=== PATIENT | male | born 1955 | race Caucasian/White ===

== ENCOUNTER 2020-01-13 16:31 | Emergency (ER) | payer BC, SELFPAY ==
[2020-01-13 16:53] VITALS: BP 121/71; PULSE 72; RESP 16; TEMP 36.6; O2SAT 100
--- NOTE | 2020-01-13 17:23 | ED.GENADULT ---
HPI - General Adult General Chief complaint: Ear Stated complaint: Possible Ear infection Time Seen by Provider: 01/13/20 17:23 Source: patient and RN notes reviewed Mode of arrival: ambulatory Limitations: no limitations History of Present Illness HPI narrative: 64-year-old -[place] male presents with complaints of left otalgia, itching, blood drainage, and intermittent headache (not the worst of his life) for the past 9 days. Vitamin E and Peroxide without relief. Denies swimming. Dominic believes he got water into ear when he put his wet Bluecoat in it. Denies trouble hearing. Denies URI symptoms, No high fevers or chills. Denies injury to the ear. No nasal drainage and congestion. Denies nausea, vomiting, tinnitus, and dizziness. The patient reports he have not been diagnosed with COVID-19. The patient reports he is not waiting for the results of a COVID-19 lab test. The patient reports he do not have fever, chills, weakness, fatigue, myalgia, or facial swelling. The patient reports he do not have a new or worsening cough or shortness of breath. Denies chest pain. The patient reports he do not have any rhinorrhea, congestion, sore throat, nausea, vomiting, abdominal pain, and diarrhea. Tolerating po intake well. Denies recent traveling. Denies concerns for COVID-19 or exposures been home with limited outdoor exposure except for essential household needs, work, and return home. At this time, patient is not suspected of having COVID-19. Some parts of this dictation were generated by voice recognition software and may contain typographical and/or grammatical inaccuracies. Related Data Allergies Allergy/AdvReac Type Severity Reaction Status Date / Time No Known Allergies Allergy Unverified 11/24/18 17:23 Review of Systems Review of Systems: Narrative: CONSTITUTIONAL: Denies fever, chills, sweats. EYES: Denies visual changes, redness, discharge. ENT: Denies rhinorrhea, congestion, sore throat. Complains of LT otalgia, ear drainage, and itching. CARDIOVASCULAR: Denies chest pain, palpitations, edema. RESPIRATORY: Denies dyspnea, wheezing, cough. GASTROINTESTINAL: Denies abdominal pain, nausea, vomiting, diarrhea. GENITOURINARY: Denies dysuria, hematuria, abnormal discharge. SKIN: Denies rash or itching. MUSCULOSKELETAL: Denies acute back pain, joint pain, or myalgia. NEUROLOGIC: Denies numbness or focal weakness. Complains of LUNDBERG. PSYCHIATRIC: Denies anxiety or depression. All systems reviewed & are unremarkable except as noted in HPI and below. 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 Family History Family History Mother , Crohn's disease Hypertension Family history of gastrointestinal disorder Father Throat cancer Social History Social History Smoking status: Light tobacco smoker Tobacco type: cigars Second hand tobacco smoke exposure: No Alcohol intake: current Substance use: never Living arrangements: with family Occupation/Education: occupation Gender identity (if verbalized by the patient): Male Sexual Orientation (if Verbalized by the Patient): Straight or Heterosexual Comments At time of signature, I have reviewed and agree with nursing past medical, surgical, social, and family history. Please see nursing chart for further information. There is no relevant family history pertinent to the presenting complaint. Exam Narrative: Exam Narrative: GENERAL: This is a well-nourished, well-developed patient, in no apparent distress. Talks in full sentences and ambulates with steady gait with
== END 2020-01-13 17:51 | disposition home or self-care (01) ==
PROVIDERS: Emergency Provider Nurse Practitioner Family
DX: H60.392 Other infective otitis externa, left ear (principal); F17.290 Nicotine dependence, other tobacco product, uncomplicated
CPT/HCPCS: 99213; G0463

== ENCOUNTER 2020-01-23 17:10 | Emergency (ER) | payer BC, SELFPAY ==
[2020-01-23 17:24] VITALS: BP 129/81; PULSE 72; RESP 16; TEMP 36.6; O2SAT 99
--- NOTE | 2020-01-23 17:24 | ED.EXTPRO ---
HPI - Extremity Problem General Chief complaint: Extremity Problem,Nontraumatic Stated complaint: swollen arm Time Seen by Provider: 01/23/20 17:25 Source: patient and RN notes reviewed Mode of arrival: ambulatory Limitations: no limitations History of Present Illness HPI Narrative: This is a 64 years old male presents to the office for an evaluation of possible skin infection of his right elbow. He first noticed a painful nodule below his elbow. So, he tried to keep it clean with alcohol and peroxide and Band-Aid and then he noticed the swelling about 2 days ago. Denies insect bite injury or trauma. Td is up-to-date Related Data Allergies Allergy/AdvReac Type Severity Reaction Status Date / Time No Known Allergies Allergy Unverified 11/24/18 17:23 Review of Systems Review of Systems: Narrative: CONSTITUTIONAL: Denies fever ENT: Denies rhinorrhea, congestion, sore throat, otalgia. CARDIOVASCULAR: Denies chest pain, palpitation RESPIRATORY: Denies dyspnea, wheezing, cough GASTROINTESTINAL: Denies abdominal pain, nausea, vomiting SKIN:reports right elbow pain with swelling MUSCULOSKELETAL: Denies elbow injury/trauma NEUROLOGIC: Denies lightheaded All other systems reviewed are negative, except as documented in HPI. 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 There is no relevant family history pertinent to the presenting complaint. Exam Narrative: Exam Narrative: GENERAL: This is a well-nourished, well-developed patient, in no apparent distress. NECK: Neck supple, non-tender without lymphadenopathy, masses or thyromegaly. CARDIOVASCULAR: Regular rate and rhythm without murmurs, gallops, or rubs. RESPIRATORY: Clear to auscultation. Breath sounds equal bilaterally. No wheezes, rales, or rhonchi. GASTROINTESTINAL: Abdomen soft, non-tender, nondistended. Bowel sounds are active. No hepato-splenomegaly, or palpable masses. No guarding. SKIN: right posterior below elbow noted a localize tender nodule with warmth and edematous that goes down to his mid forearm. NEURO: awake, alert, and oriented to person, place and time. There were no obvious focal neurologic abnormalities. Steady gait EXTREMITIES: Normal range of motion of bilateral elbows. Radius pulses intact. [place] Coma Scale Eye Opening: Spontaneous 4 Dante Coma Scale Motor: Obeys Commands 6 [place] Coma Scale Verbal: Oriented 5 Course Vital Signs Vital signs: Vital Signs Temperature 97.8 F 01/23/20 17:24 Pulse Rate 72 01/23/20 17:24 Respiratory Rate 16 01/23/20 17:24 Blood Pressure 129/81 01/23/20 17:24 Pulse Oximetry 99 01/23/20 17:24 Temperature 97.8 F 01/23/20 17:24 Pulse Rate 72 01/23/20 17:24 Respiratory Rate 16 01/23/20 17:24 Blood Pressure 129/81 01/23/20 17:24 Pulse Oximetry 99 01/23/20 17:24 MDM - Extremity (Nontraumatic) MDM Narrative Medical decision making narrative: Discharge instructions reviewed with patient, as well as provided in writing per nursing staff. The instructions also include specific and strict return/GO TO THE ER as well as f/
== END 2020-01-23 17:44 | disposition home or self-care (01) ==
PROVIDERS: Emergency Provider Nurse Practitioner
DX: L03.113 Cellulitis of right upper limb (principal); F17.290 Nicotine dependence, other tobacco product, uncomplicated
CPT/HCPCS: 99213; G0463

== ENCOUNTER 2021-03-12 18:00 | Emergency (ER) | payer MEDICARE, SELFPAY ==
[2021-03-12 18:12] VITALS: BP 127/87; PULSE 60; RESP 16; TEMP 36.8; O2SAT 98
--- NOTE | 2021-03-12 19:40 | ED.GENADULT ---
HPI - General Adult General Chief complaint: Skin/Abscess/Foreign Body Stated complaint: left forearm swelling Source: patient Mode of arrival: ambulatory Limitations: no limitations History of Present Illness HPI narrative: Patient is a 65-year-old male who presents to the [facility] via POV for evaluation of a skin problem located on left forearm that has been present for 2 days. Additionally, he reports the area to be tender, warm, and erythematous. Denies taking OTC meds for symptoms. Tenderness increases with movement and touching affected area. Related Data Home Medications Medication Instructions Recorded Confirmed tramadol 50 mg PO 03/12/21 valacyclovir 500 mg PO DAILY 03/12/21 03/12/21 Allergies Allergy/AdvReac Type Severity Reaction Status Date / Time shellfish derived Allergy Rash Verified 03/12/21 19:08 Review of Systems Review of Systems: Denies injury. Pertinent negatives fever, chills, sweats, malaise, poor p.o. intake, change in appetite, headache, LOC, dizziness, streaking, drainage, numbness, tingling, loss of sensation, foreign body sensation, deformity, sob, chest pain, and heart palpitations/murmurs. 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 2015 Surgical History Surgical History History of kidney surgery Removed from behind LT kidney in 2016 Family History Family History Mother , Crohn's disease Hypertension Family history of gastrointestinal disorder Father Throat cancer Social History Social History Smoking status: Light tobacco smoker Tobacco type: cigars Second hand tobacco smoke exposure: No Alcohol intake: current Substance use: never Gender identity (if verbalized by the patient): Male Sexual Orientation (if Verbalized by the Patient): Straight or Heterosexual Comments I have reviewed and agree with the patient's past medical, surgical, social, and family hx as documented by the RN. There is no relevant family history pertinent to the presenting complaint. Exam Narrative: GENERAL: Well-appearing, well-nourished, and in no acute distress. HEAD: Normocephalic, atraumatic. No facial swelling appreciated. EYES: PERRLA and EOMI. No evidence of erythema, swelling, or drainage. NECK: Supple. No Lymphadenopathy or nuchal rigidity appreciated. CHEST: Bilateral lung sandra are clear to auscultation. No respiratory distress. No evidence of cough or pleuritic cp upon examination. HEART: Regular rate and rhythm. No murmur, gallop, or rub heard. EXTREMITIES: Normal range of motion. No edema. SKIN: Warm, dry. Moderate cellulitis noted to left forearm. No evidence of abscess, streaking, induration, abrasions/lacerations, petechiae, hematoma, contusion, drainage, or bleeding. NEURO: No focal deficits. Alert and oriented x3. Course Vital Signs Vital signs: Vital Signs Temperature 98.3 F 03/12/21 18:12 Pulse Rate 60 03/12/21 18:12 Respiratory Rate 16 03/12/21 18:12 Blood Pressure 127/87 03/12/21 18:12 Pulse Oximetry 98 03/12/21 18:12 Temperature 98.3 F 03/12/21 18:12 Pulse Rate 60 03/12/21 18:12 Respiratory Rate 16 03/12/21 18:12 Blood Pressure 127/87 03/12/21 18:12 Pulse Oximetry 98 03/12/21 18:12 Due to an elevated blood pressure, I had a detailed discussion with the patient and/or guardian regarding the need for follow-up with their primary care provider within the next 3-4 days. Patient verbalized understanding and agreed. Medical Decision Making Differential Diagnosis Differential Diagnosis: Contact/allergic dermatitis, atopic dermatitis, psoriasis, cellulitis, tinea infection, parasite infection, shingle
== END 2021-03-12 19:45 | disposition home or self-care (01) ==
PROVIDERS: Emergency Provider Nurse Practitioner Family
DX: L03.114 Cellulitis of left upper limb (principal); F17.290 Nicotine dependence, other tobacco product, uncomplicated
CPT/HCPCS: 99213; G0463